=== PATIENT | female | born 1945 | race Caucasian/White ===

== ENCOUNTER 2020-08-18 06:31 | Emergency (ER) | payer OTHER ==
[~2020-08-18] VITALS: Ht 157.5 cm; Wt 51.7 kg
[2020-08-18] MEDS ORDERED: INDERAL LA80 MG (06:38)
== END 2020-08-18 12:22 | disposition home or self-care (01) ==
LOC: ER 06:31 → CPU-OBS 07:14 → ER 12:22
DX: R07.89 Other chest pain (principal)
CPT/HCPCS: G0378; G0379; 93005

== ENCOUNTER 2022-12-14 08:09 | Emergency (ER) | payer OTHER ==
[~2022-12-14] VITALS: Ht 154.9 cm; Wt 54.4 kg
[~2022-12-14 08:09] MED LIST: INDERAL LA80 MG
== END 2022-12-14 11:43 ==
LOC: ER 08:09
DX: M25.552 Pain in left hip (principal)